=== PATIENT | female | born 1990 | race Caucasian/White ===

== ENCOUNTER 2018-11-27 22:17 | Emergency (ER) | payer BC ==
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
== END 2018-11-28 00:40 | disposition home or self-care (01) ==
LOC: MW.ED 22:17
DX: S80.12XA Contusion of left lower leg, initial encounter (principal); M79.631 Pain in right forearm; M54.6 Pain in thoracic spine; V89.2XXA Person injured in unspecified motor-vehicle accident, traffic, initial encounter
CPT/HCPCS: 72072; 72072-26; 72170; 72170-26; 73090-26-RT; 73090-RT; 73590-26-LT; 73590-LT; 81003; 81025; 99284-25

== ENCOUNTER 2020-03-05 10:57 | Inpatient (IN) | payer BC ==
[2020-03-05 13:07] LABS: BLOOD UREA NITROGEN,BUN 9 mg/dL (7.0-18.0); CARBON DIOXIDE,CO2 21.5 mmol/L (21.0-32.0); CHLORIDE,CL 104 mmol/L (98-107); GLUCOSE RANDOM 75 mg/dL (74-106); POTASSIUM,K 4.3 mmol/L (3.5-5.1); SODIUM,NA 137 mmol/L (136-145)
[2020-03-05] MEDS ORDERED: Terbutaline 1 MG/ML SDV SUBCUT PRN (15:08)
[2020-03-05] MEDS ORDERED: Nalbuphine 10 MG/1 ML Vial IVPUSH PRN (15:08)
[2020-03-05] MEDS ORDERED: Ondansetron 4 MG/2 ML SDV IVPUSH PRN (15:08)
[2020-03-05] MEDS ORDERED: Misoprostol 200 MCG Tab PO PRN (15:08)
[2020-03-05] MEDS ORDERED: Sodium Chloride 0.9% 10 ML Syringe FLUSH PRN (15:08)
[2020-03-05] MEDS ORDERED: Carboprost Tromethamine 250 MCG/1 ML Amp IM PRN (15:08)
[2020-03-05] MEDS ORDERED: Sodium Chloride 0.9% 2.5 ML Syringe FLUSH PRN (15:08)
[2020-03-05] MEDS ORDERED: Water For Irrigation,Sterile 1,000 ML Container IRR PRN (15:08)
[2020-03-05] MEDS ORDERED: Lidocaine 1% 50 ML MDV INJECT PRN (15:08)
[2020-03-05] MEDS ORDERED: Methylergonovine 0.2 MG/1 ML Amp IM PRN (15:08)
[2020-03-05] MEDS ORDERED: Misoprostol 25 MCG (1/4 of 100 MCG) Tab VAG PRN ×2 (15:08)
[2020-03-05] MEDS ORDERED: Butorphanol 1 MG/ML SDV IVPUSH PRN (15:08)
[2020-03-05] MEDS ORDERED: Tranexamic Acid 1,000 MG in Sodium Chloride 0.9% 100 ML IV PRN (15:08)
[2020-03-05] MEDS ORDERED: Lactated Ringers 1,000 ML IV SCH (15:15)
[2020-03-05] MEDS ORDERED: Oxytocin/0.9 % Sodium Chloride 30 UNIT/500 ML BAG IV SCH ×2 (15:15)
[2020-03-05] MEDS ORDERED: Benzocaine/Menthol 20%-0.5% Spray 78 GM Cannister TOP PRN (23:20)
[2020-03-05] MEDS ORDERED: Bisacodyl 10 MG Supp RECTAL PRN (23:20)
[2020-03-05] MEDS ORDERED: Ibuprofen 400 MG Tab PO PRN (23:20)
[2020-03-05] MEDS ORDERED: Docusate Sodium 100 MG Cap PO PRN (23:20)
[2020-03-05] MEDS ORDERED: Witch Hazel Medicated Pads 40/Jar TOP PRN (23:20)
[2020-03-05] MEDS ORDERED: Acetaminophen 500 MG Tab PO PRN ×2 (23:20)
[2020-03-05] MEDS ORDERED: oxyCODONE 5 MG Tab PO PRN (23:20)
[2020-03-05] MEDS ORDERED: Lanolin 100% Cream 7 GM Tube TOP PRN (23:20)
--- NOTE | 2020-03-05 23:26 | PCM.DEL ---
L & D Note - General Info Date of Service: 03/05/20 Mother's Due Date: 03/16/20 - Delivery Note Labor: Induced by Oxytocin Cervical Ripening Method: Misoprostil Delivery Outcome: Livebirth Infant Delivery Method: Spontaneous Vaginal Delivery-Single Presentation: Vertex Nuchal Cord: None Anesthetic: Lidocaine (Xylocaine) 1% Plain Local Anesthetic Volume: Other (10cc) Amniotic Fluid Description: Clear Episiotomy Type: None Laceration: 2nd Degree Suture type: Vicryl Suture size: 3-0 Placenta: Intact, Spontaneous Cord: 3 Vessels Estimated Blood Loss: 350 Resuscitation Needed: No [place]: Bulb Syringe Score 1 min: 8 Score 5 min: 9 - General Info Date of Service: 03/05/20 - Patient Data Weight - Most Recent: 198 lb Lab Results Last 24 Hours: Laboratory Results - last 24 hr 03/05/20 03/05/20 03/05/20 Range/Units 12:01 12:01 15:35 WBC 11.46 H (4.0-11.0) K/uL RBC 4.79 (4.30-5.90) M/uL Hgb 11.8 L (12.0-16.0) g/dL Hct 37.0 (36.0-46.0) % MCV 77.2 L (80.0-98.0) fL MCH 24.6 L (27.0-32.0) pg MCHC 31.9 (31.0-37.0) g/dL RDW Std Deviation 44.2 (28.0-62.0) fl RDW Coeff of Mahamed 16 H (11.0-15.0) % Plt Count 313 (150-400) K/uL MPV 10.30 (7.40-12.00) fL Neut % (Auto) 76.3 (48.0-80.0) % Lymph % (Auto) 17.7 (16.0-40.0) % [place] % (Auto) 5.1 (0.0-15.0) % Eos % (Auto) 0.8 (0.0-7.0) % Baso % (Auto) 0.1 (0.0-1.5) % Neut # (Auto) 8.8 H (1.4-5.7) K/uL Lymph # (Auto) 2.0 (0.6-2.4) K/uL [place] # (Auto) 0.6 (0.0-0.8) K/uL Eos # (Auto) 0.1 (0.0-0.7) K/uL Baso # (Auto) 0.0 (0.0-0.1) K/uL Nucleated RBC % 0.0 /100WBC Nucleated RBCs # 0 K/uL Sodium 137 (136-145) mmol/L Potassium 4.3 (3.5-5.1) mmol/L Chloride 104 (98-107) mmol/L Carbon Dioxide 21.5 (21.0-32.0) mmol/L BUN 9 (7.0-18.0) mg/dL Creatinine 0.7 (0.6-1.0) mg/dL Est Cr Clr Drug Dosing 94.63 mL/min Estimated GFR (MDRD) > 60.0 ml/min Glucose 75 (74-106) mg/dL Uric Acid 3.7 (2.6-7.2) mg/dL Calcium 8.7 (8.5-10.1) mg/dL Total Bilirubin 0.4 (0.2-1.0) mg/dL AST 17 (15-37) IU/L ALT 23 (14-63) IU/L Alkaline Phosphatase 703 H (46-116) U/L Total Protein 6.6 (6.4-8.2) g/dL Albumin 2.6 L (3.4-5.0) g/dL Globulin 4.0 (2.6-4.0) g/dL Albumin/Globulin Ratio 0.7 L (0.9-1.6) SARS-CoV-2 RNA (EMILY) (NEGATIVE) Blood Type A POSITIVE Antibody Screen NEGATIVE 03/05/20 Range/Units 15:46 WBC (4.0-11.0) K/uL RBC (4.30-5.90) M/uL Hgb (12.0-16.0) g/dL Hct (36.0-46.0) % MCV (80.0-98.0) fL MCH (27.0-32.0) pg MCHC (31.0-37.0) g/dL RDW Std Deviation (28.0-62.0) fl RDW Coeff of Mahamed (11.0-15.0) % Plt Count (150-400) K/uL MPV (7.40-12.00) fL Neut % (Auto) (48.0-80.0) % Lymph % (Auto) (16.0-40.0) % Wilcox % (Auto) (0.0-15.0) % Eos % (Auto) (0.0-7.0) % Baso % (Auto) (0.0-1.5) % Neut # (Auto) (1.4-5.7) K/uL Lymph # (Auto) (0.6-2.4) K/uL Wilcox # (Auto) (0.0-0.8) K/uL Eos # (Auto) (0.0-0.7) K/uL Baso # (Auto) (0.0-0.1) K/uL Nucleated RBC % /100WBC Nucleated RBCs # K/uL Sodium (136-145) mmol/L Potassium (3.5-5.1) mmol/L Chloride (98-107) mmol/L Carbon Dioxide (21.0-32.0) mmol/L BUN (7.0-18.0) mg/dL Creatinine (0.6-1.0) mg/dL Est Cr Clr Drug Dosing mL/min Estimated GFR (MDRD) ml/min Glucose (74-106) mg/dL Uric Acid (2.6-7.2) mg/dL Calcium (8.5-10.1) mg/dL Total Bilirubin (0.2-1.0) mg/dL AST (15-37) IU/L ALT (14-63) IU/L Alkaline Phosphatase (46-116) U/L Total Protein (6.4-8.2) g/dL Albumin (3.4-5.0) g/dL Globulin (2.6-4.0) g/dL Albumin/Globulin Ratio (0.9-1.6) SARS-CoV-2 RNA (EMILY) NEGATIVE (NEGATIVE) Blood Type Antibody Screen Med Orders - Current: Current Medications Butorphanol Tartrate (Stadol) 1 mg IVPUSH Q1H PRN PRN Reason: Pain Carboprost Tromethamine (Hemabate Ds) 250 mcg IM ASDIRECTED PRN PRN Reason: Post Hemorrhage Oxytocin/Sodium Chloride (Oxytocin 30 Unit/500 Ml-Ns) 30 unit in 500 mls @ 2 mls/hr IV TITRATE YURIDIA; Protocol Last Titration: 03/05/20 22:32 Dose: 0 munits/min, 0 mls/hr Documented by: Lactated Ringer's (Ringers, Lactated) 1,000 mls @ 150 mls/hr IV ASDIRECTED YURIDIA Oxytocin/Sodium Chloride (Oxytocin 30 Unit/500 Ml-Ns) 30 unit in 500 mls @ 500 mls/hr IV TITRATE YURIDIA Tranexamic Acid 1,000 mg/ (Sodium Chloride) 110 mls @ 660 mls/hr IV ONETIME PRN PRN Reason: Bleeding Lidocaine HCl (Xylocaine 1%) 50 ml INJECT ONETIME PRN PRN Reason: Laceration repair Methylergonovine Maleate (Methergine) 0.2 mg IM ASDIRECTED PRN PRN Reason: Post Hemorrhage Misoprostol (Cytotec) 25 mcg VAG ONETIME PRN PRN Reason: Cervical Ripening Last Admin: 03/05/20 16:44 Dose: 25 mcg Documented by: Misoprostol (Cytotec) 25 mcg VAG Q4H PRN PRN Reason: Cervical Ripening Misoprostol (Cytotec) 200 mcg PO ONETIME PRN PRN Reason: Post Hemorrhage Ondansetron HCl (Zofran) 4 mg IVPUSH Q4H PRN PRN Reason: Nausea/Vomiting Sodium Chloride (Saline Flush) 10 ml FLUSH ASDIRECTED PRN PRN Reason: Keep Vein Open Sodium Chloride (Saline Flush) 2.5 ml FLUSH ASDIRECTED PRN PRN Reason: Keep Vein Open Sterile Water (Sterile Water For Irrigation) 1,000 ml IRR ASDIRECTED PRN PRN Reason: delivery Terbutaline Sulfate (Brethine) 0.25 mg SUBCUT ASDIRECTED PRN PRN Reason: Tacysystole - Problem List Review Problem List Initiated/Reviewed/Updated: Yes - My Orders Last 24 Hours: My Active Orders 03/05/20 23:20 Patient Status [ADT] Routine May Shower [RC] ASDIRECTED Up ad Yadira [RC] ASDIRECTED Vital Signs [RC] PER UNIT ROUTINE Acetaminophen [Tylenol Extra Strength] 1,000 mg PO Q4H PRN Acetaminophen [Tylenol Extra Strength] 500 mg PO Q4H PRN Benzocaine/Menthol [Dermoplast Pain Relief 20%-0.5% [place]] 78 gm TOP DIRECTED PRN Docusate Sodium [Colace] 100 mg PO BID PRN Ibuprofen [Motrin] 400 mg PO Q4H PRN Ibuprofen [Motrin] 800 mg PO Q6H PRN Lanolin [Lansinoh HPA] See Dose Instructions TOP ASDIRECTED PRN bisacodyL [Dulcolax] 10 mg RECTAL ONETIME PRN oxyCODONE 5 mg PO Q2H PRN witch Tj [Tucks] 1 pad TOP ASDIRECTED PRN Assess Lochia [WOMSER] Per Unit Routine Assess Uterine Involution [WOMSER] Per Unit Routine Peripheral IV Discontinue [OM.PC] Routine 03/06/20 05:11 HEMOGLOBIN/HEMATOCRIT,HH [HEME] Timed - Assessment Assessment:: 30yo G3 now P3 s/p IOL for gestation hypertension - Plan Plan:: Routine cares * A+, GBS negative * Rubella NON-immune - Recommend MMR * Admission Hgb 11.8, EBL 350cc - Will monitor bleeding * Encourage ambulation and fluid intake when able * assistance as needed Gestational hypertension * BPs normotensive to mild range - Will continue to monitor * Asymptomatic * Preeclampsia labs within normal limits Dispo: stable. Anticipate routine course.
--- NOTE | 2020-03-06 00:42 | OR ---
SURGEON: MADYSON MAURO MD DATE OF PROCEDURE: 03/05/2020 PROCEDURE: Spontaneous vaginal delivery. PREOPERATIVE DIAGNOSES: 1. A 38.3 weeks' . 2. Gestational hypertension. POSTOPERATIVE DIAGNOSES: 1. A 38.3 weeks' . 2. Gestational hypertension. PRIMARY SURGEON: Madyson Mauro MD INTERMEDIATE MANAGER: COMPLICATIONS: None. ESTIMATED BLOOD LOSS: 350 mL. FINDINGS: Viable female . scores 8 at one minute and 9 at five minutes. Weight not yet available. Spontaneous vaginal delivery. Placenta delivered intact with 3-vessel cord. Second-degree perineal laceration. DESCRIPTION OF PROCEDURE: Nadeen is a 30-year-old 3, para 2, who was diagnosed with gestational hypertension at 38.3 weeks' gestation at her routine OB visit on 03/05. She was sent over to Labor and Delivery after her visit and had preeclampsia workup, which was negative. Blood pressures remained normotensive to mild range and she remained asymptomatic. Her cervical exam was 1 to 2 cm, 50, and -3. Upon admission to Labor and Delivery, she received a dose of vaginal Cytotec. Labor progressed spontaneously along with spontaneous rupture of membranes at approximately 2230. I was called at 2250 for delivery, and upon arrival to the room, the patient had just delivery of viable female . scores were 8 and 9 at one and five minutes respectively. After a delay, the cord was clamped and cut, and arterial and venous cord gases were obtained along with cord blood sampling. Placenta was then delivered spontaneously and intact. Appeared normal upon inspection, and was sent for pathology due to gestational hypertension diagnosis. A second-degree perineal laceration was noted. The area was numbed with local anesthetic, lidocaine 1%, without epinephrine. The second-degree laceration was repaired with 3-0 Vicryl in usual fashion. Uterus remained firm and below the umbilicus throughout the procedure. Hemostasis was noted. EBL was 350 mL. Sponge counts and needle counts were correct x2. The patient tolerated the procedure well and the patient and infant remained in Labor and Delivery room for recovery at this time. KARO / MARIANNA /[id number]
[2020-03-06] MEDS: Ibuprofen 800 MG Tab PO PRN ×2 (01:05→16:41)
--- NOTE | 2020-03-06 09:14 | PCM.PNPP ---
- General Info Date of Service: 03/06/20 Subjective Update: 30yo s/p PPD 1 , she denies headache , RUQ pain and BV she is tolerating regular diet Normal lochia Functional Status: Reports: Pain Controlled, Tolerating Diet, Ambulating, Urinating - Review of Systems General: Reports: No Symptoms HEENT: Reports: No Symptoms Pulmonary: Reports: No Symptoms Cardiovascular: Reports: No Symptoms Gastrointestinal: Reports: No Symptoms Genitourinary: Reports: No Symptoms Musculoskeletal: Reports: No Symptoms Skin: Reports: No Symptoms Neurological: Reports: No Symptoms Psychiatric: Reports: No Symptoms - Patient Data Vital Signs - Most Recent: Last Vital Signs Temp 36.3 C 03/06/20 07:53 Pulse 92 03/06/20 07:53 Resp 17 03/06/20 07:53 BP 117/74 03/06/20 07:53 Pulse Ox 98 03/06/20 07:53 Weight - Most Recent: 89.811 kg Lab Results - Last 24 Hours: Laboratory Results - last 24 hr 03/05/20 03/05/20 03/05/20 Range/Units 12:01 12:01 15:35 WBC 11.46 H (4.0-11.0) K/uL RBC 4.79 (4.30-5.90) M/uL Hgb 11.8 L (12.0-16.0) g/dL Hct 37.0 (36.0-46.0) % MCV 77.2 L (80.0-98.0) fL MCH 24.6 L (27.0-32.0) pg MCHC 31.9 (31.0-37.0) g/dL RDW Std Deviation 44.2 (28.0-62.0) fl RDW Coeff of Mahamed 16 H (11.0-15.0) % Plt Count 313 (150-400) K/uL MPV 10.30 (7.40-12.00) fL Neut % (Auto) 76.3 (48.0-80.0) % Lymph % (Auto) 17.7 (16.0-40.0) % Gaines % (Auto) 5.1 (0.0-15.0) % Eos % (Auto) 0.8 (0.0-7.0) % Baso % (Auto) 0.1 (0.0-1.5) % Neut # (Auto) 8.8 H (1.4-5.7) K/uL Lymph # (Auto) 2.0 (0.6-2.4) K/uL Gaines # (Auto) 0.6 (0.0-0.8) K/uL Eos # (Auto) 0.1 (0.0-0.7) K/uL Baso # (Auto) 0.0 (0.0-0.1) K/uL Nucleated RBC % 0.0 /100WBC Nucleated RBCs # 0 K/uL Sodium 137 (136-145) mmol/L Potassium 4.3 (3.5-5.1) mmol/L Chloride 104 (98-107) mmol/L Carbon Dioxide 21.5 (21.0-32.0) mmol/L BUN 9 (7.0-18.0) mg/dL Creatinine 0.7 (0.6-1.0) mg/dL Est Cr Clr Drug Dosing 94.63 mL/min Estimated GFR (MDRD) > 60.0 ml/min Glucose 75 (74-106) mg/dL Uric Acid 3.7 (2.6-7.2) mg/dL Calcium 8.7 (8.5-10.1) mg/dL Total Bilirubin 0.4 (0.2-1.0) mg/dL AST 17 (15-37) IU/L ALT 23 (14-63) IU/L Alkaline Phosphatase 703 H (46-116) U/L Total Protein 6.6 (6.4-8.2) g/dL Albumin 2.6 L (3.4-5.0) g/dL Globulin 4.0 (2.6-4.0) g/dL Albumin/Globulin Ratio 0.7 L (0.9-1.6) SARS-CoV-2 RNA (EMILY) (NEGATIVE) Blood Type A POSITIVE Antibody Screen NEGATIVE 03/05/20 03/06/20 Range/Units 15:46 05:17 WBC (4.0-11.0) K/uL RBC (4.30-5.90) M/uL Hgb 10.9 L (12.0-16.0) g/dL Hct 34.8 L (36.0-46.0) % MCV (80.0-98.0) fL MCH (27.0-32.0) pg MCHC (31.0-37.0) g/dL RDW Std Deviation (28.0-62.0) fl RDW Coeff of Mahamed (11.0-15.0) % Plt Count (150-400) K/uL MPV (7.40-12.00) fL Neut % (Auto) (48.0-80.0) % Lymph % (Auto) (16.0-40.0) % Gaines % (Auto) (0.0-15.0) % Eos % (Auto) (0.0-7.0) % Baso % (Auto) (0.0-1.5) % Neut # (Auto) (1.4-5.7) K/uL Lymph # (Auto) (0.6-2.4) K/uL Gaines # (Auto) (0.0-0.8) K/uL Eos # (Auto) (0.0-0.7) K/uL Baso # (Auto) (0.0-0.1) K/uL Nucleated RBC % /100WBC Nucleated RBCs # K/uL Sodium (136-145) mmol/L Potassium (3.5-5.1) mmol/L Chloride (98-107) mmol/L Carbon Dioxide (21.0-32.0) mmol/L BUN (7.0-18.0) mg/dL Creatinine (0.6-1.0) mg/dL Est Cr Clr Drug Dosing mL/min Estimated GFR (MDRD) ml/min Glucose (74-106) mg/dL Uric Acid (2.6-7.2) mg/dL Calcium (8.5-10.1) mg/dL Total Bilirubin (0.2-1.0) mg/dL AST (15-37) IU/L ALT (14-63) IU/L Alkaline Phosphatase (46-116) U/L Total Protein (6.4-8.2) g/dL Albumin (3.4-5.0) g/dL Globulin (2.6-4.0) g/dL Albumin/Globulin Ratio (0.9-1.6) SARS-CoV-2 RNA (EMILY) NEGATIVE (NEGATIVE) Blood Type Antibody Screen Med Orders - Current: Current Medications Acetaminophen (Tylenol Extra Strength) 500 mg PO Q4H PRN PRN Reason: Pain Acetaminophen (Tylenol Extra Strength) 1,000 mg PO Q4H PRN PRN Reason: Pain Benzocaine/Menthol (Dermoplast Pain Relief 20%-0.5% [place]) 78 gm TOP ASDIRECTED PRN PRN Reason: Perineal Comfort Measure Last Admin: 03/06/20 01:04 Dose: 1 can Documented by: Bisacodyl (Dulcolax) 10 mg RECTAL ONETIME PRN PRN Reason: Constipation Butorphanol Tartrate (Stadol) 1 mg IVPUSH Q1H PRN PRN Reason: Pain Carboprost Tromethamine (Hemabate Ds) 250 mcg IM ASDIRECTED PRN PRN Reason: Post Hemorrhage Docusate Sodium (Colace) 100 mg PO BID PRN PRN Reason: Constipation Last Admin: 03/06/20 01:05 Dose: 100 mg Documented by: Emollient Ointment (Lansinoh Hpa) 0 gm TOP ASDIRECTED PRN PRN Reason: Sore Nipples Last Admin: 03/06/20 01:05 Dose: 7 gram Documented by: Oxytocin/Sodium Chloride (Oxytocin 30 Unit/500 Ml-Ns) 30 unit in 500 mls @ 2 mls/hr IV TITRATE YURIDIA; Protocol Last Titration: 03/05/20 22:32 Dose: 0 munits/min, 0 mls/hr Documented by: Lactated Ringer's (Ringers, Lactated) 1,000 mls @ 150 mls/hr IV ASDIRECTED YURIDIA Oxytocin/Sodium Chloride (Oxytocin 30 Unit/500 Ml-Ns) 30 unit in 500 mls @ 500 mls/hr IV TITRATE YURIDIA Tranexamic Acid 1,000 mg/ (Sodium Chloride) 110 mls @ 660 mls/hr IV ONETIME PRN PRN Reason: Bleeding Ibuprofen (Motrin) 400 mg PO Q4H PRN PRN Reason: Pain Ibuprofen (Motrin) 800 mg PO Q6H PRN PRN Reason: Pain Last Admin: 03/06/20 01:05 Dose: 800 mg Documented by: Lidocaine HCl (Xylocaine 1%) 50 ml INJECT ONETIME PRN PRN Reason: Laceration repair Methylergonovine Maleate (Methergine) 0.2 mg IM ASDIRECTED PRN PRN Reason: Post Hemorrhage Misoprostol (Cytotec) 25 mcg VAG ONETIME PRN PRN Reason: Cervical Ripening Last Admin: 03/05/20 16:44 Dose: 25 mcg Documented by: Misoprostol (Cytotec) 25 mcg VAG Q4H PRN PRN Reason: Cervical Ripening Misoprostol (Cytotec) 200 mcg PO ONETIME PRN PRN Reason: Post Hemorrhage Ondansetron HCl (Zofran) 4 mg IVPUSH Q4H PRN PRN Reason: Nausea/Vomiting Oxycodone HCl (Oxycodone) 5 mg PO Q2H PRN PRN Reason: Pain Sodium Chloride (Saline Flush) 10 ml FLUSH ASDIRECTED PRN PRN Reason: Keep Vein Open Sodium Chloride (Saline Flush) 2.5 ml FLUSH ASDIRECTED PRN PRN Reason: Keep Vein Open Sterile Water (Sterile Water For Irrigation) 1,000 ml IRR ASDIRECTED PRN PRN Reason: delivery Terbutaline Sulfate (Brethine) 0.25 mg SUBCUT ASDIRECTED PRN PRN Reason: Tacysystole Witch Carole (Tucks) 1 pad TOP ASDIRECTED PRN PRN Reason: comfort care Last Admin: 03/06/20 01:04 Dose: 1 tub Documented by: - Infant Interaction Support Person: - Recovery Exam Fundal Tone: Firm Fundal Level: 1 Fingerbreadths Below Umbilicus Fundal Placement: Midline Lochia Amount: Scant Lochia Color: Rubra/Red Perineum Description: Other (see below) Other Perinuem Description: 1st degree laceration Episiotomy/Laceration: Approximated Bladder Status: Voiding Urinary Elimination: Voided - Exam General: Alert HEENT: Pupils Equal Neck: Supple Lungs: Clear to Auscultation, Rhonchi Cardiovascular: Regular Rate GI/Abdominal Exam: Normal Bowel Sounds Neurological: No New Focal Deficit Psy/Mental Status: Alert - Problem List & Annotations (1) Vaginal delivery SNOMED Code(s): 461116473 Code(s): O80 - ENCOUNTER FOR FULL-TERM UNCOMPLICATED DELIVERY Status: Acute Current Visit: Yes (2) Gestational hypertension SNOMED Code(s): 513140106 Code(s): O13.9 - GESTATIONAL HTN W/O SIGNIFICANT PROTEINURIA, UNSP TRIMESTER Status: Acute Current Visit: Yes - Problem List Review Problem List Initiated/Reviewed/Updated: Yes - My Orders Last 24 Hours: My Active Orders 03/05/20 Lunch Regular Diet [DIET] 03/05/20 11:37 Patient Status [ADT] Routine Up ad Yadira [RC] ASDIRECTED Vital Signs [RC] PER UNIT ROUTINE Resuscitation Status Routine 03/05/20 15:08 Butorphanol [Stadol] 1 mg IVPUSH Q1H PRN Carboprost Tromethamine [Hemabate DS] 250 mcg IM ASDIRECTED PRN Lidocaine 1% [Xylocaine 1%] 50 ml INJECT ONETIME PRN Methylergonovine [Methergine] 0.2 mg IM ASDIRECTED PRN Ondansetron [Zofran] 4 mg IVPUSH Q4H PRN Sodium Chloride 0.9% [Saline Flush] 10 ml FLUSH ASDIRECTED PRN Sodium Chloride 0.9% [Saline Flush] 2.5 ml FLUSH ASDIRECTED PRN Terbutaline [Brethine] 0.25 mg SUBCUT ASDIRECTED PRN Tranexamic Acid [Cyklokapron] 1,000 mg Sodium Chloride 0.9% [Normal Saline] 100 ml IV ONETIME Water For Irrigation,Sterile [Sterile Water for Irrigation] 1,000 ml IRR ASD IRECTED PRN miSOPROStoL [Cytotec] 200 mcg PO ONETIME PRN miSOPROStoL [Cytotec] 25 mcg VAG ONETIME PRN miSOPROStoL [Cytotec] 25 mcg VAG Q4H PRN 03/05/20 15:09 Patient Status [ADT] Routine May Shower [RC] ASDIRECTED Oxygen Therapy [RC] ASDIRECTED Vital Signs [RC] PER UNIT ROUTINE Vital Signs [RC] PER UNIT ROUTINE Scalp Electrode [WOMSER] Per Unit Routine Peripheral IV Insertion Adult [OM.PC] Routine 03/05/20 15:15 Lactated Ringers [Ringers, Lactated] 1,000 ml IV ASDIRECTED Oxytocin/0.9 % Sodium Chloride [Oxytocin 30 Unit/500 ML-NS] 30 unit in 500 ml IV TITRATE Oxytocin/0.9 % Sodium Chloride [Oxytocin 30 Unit/500 ML-NS] 30 unit in 500 ml IV TITRATE Medication Administration Instruction [OM.PC] Q3H 03/05/20 15:35 RPR (SYPHILIS SERO) W/ RFLX [REF] Routine 03/05/20 20:00 PROTEIN/CREATININE RATIO,URINE [URCHEM] Routine - Assessment Assessment:: 30yo P3 s/p ( induced for gestation hypertension) PPD 1 stable , BP stable , PCR still pending Normal lochia - Plan Plan:: Routine care Rubella non- immune - MMR today Pain control as needed Discharge home today.
[2020-03-06] MEDS ORDERED: Measles, Mumps & Rubella Vaccine 0.5 ML SDV SUBCUT ONE (09:15)
[2020-03-07] MEDS: Ibuprofen 800 MG Tab PO PRN (03:37)
--- NOTE | 2020-03-07 08:44 | PCM.PNPP ---
- General Info Date of Service: 03/07/20 Subjective Update: 30yo s/p PPD 2 , she denies headache , RUQ pain and BV she is tolerating regular diet Normal lochia Functional Status: Reports: Pain Controlled, Tolerating Diet, Ambulating, Urinating - Review of Systems General: Reports: No Symptoms HEENT: Reports: No Symptoms Pulmonary: Reports: No Symptoms Cardiovascular: Reports: No Symptoms Gastrointestinal: Reports: No Symptoms Genitourinary: Reports: No Symptoms Musculoskeletal: Reports: No Symptoms Skin: Reports: No Symptoms Neurological: Reports: No Symptoms Psychiatric: Reports: No Symptoms - General Info Date of Service: 03/07/20 - Patient Data Vital Signs - Most Recent: Last Vital Signs Temp 36.2 C 03/07/20 08:28 Pulse 70 03/07/20 08:28 Resp 14 03/07/20 08:28 BP 115/73 03/07/20 08:28 Pulse Ox 98 03/07/20 08:28 Weight - Most Recent: 89.811 kg Lab Results - Last 24 Hours: Laboratory Results - last 24 hr 03/05/20 03/06/20 Range/Units 22:46 09:45 Cord ABG pH 7.237 (7.18-7.38) Cord ABG Base Excess -7 (-10--2) Cord VBG pH 7.274 (7.25-7.45) Cord VBG Base Excess -6 (-10--2) Ur Random Creatinine 45.8 mg/dL U Random Total Protein 64.7 H (<11.9) mg/dL Protein/Creatinin Ratio 1.4 Med Orders - Current: Current Medications Acetaminophen (Tylenol Extra Strength) 500 mg PO Q4H PRN PRN Reason: Pain Acetaminophen (Tylenol Extra Strength) 1,000 mg PO Q4H PRN PRN Reason: Pain Benzocaine/Menthol (Dermoplast Pain Relief 20%-0.5% [place]) 78 gm TOP ASDIRECTED PRN PRN Reason: Perineal Comfort Measure Last Admin: 03/06/20 01:04 Dose: 1 can Documented by: Bisacodyl (Dulcolax) 10 mg RECTAL ONETIME PRN PRN Reason: Constipation Butorphanol Tartrate (Stadol) 1 mg IVPUSH Q1H PRN PRN Reason: Pain Carboprost Tromethamine (Hemabate Ds) 250 mcg IM ASDIRECTED PRN PRN Reason: Post Hemorrhage Docusate Sodium (Colace) 100 mg PO BID PRN PRN Reason: Constipation Last Admin: 03/06/20 01:05 Dose: 100 mg Documented by: Emollient Ointment (Lansinoh Hpa) 0 gm TOP ASDIRECTED PRN PRN Reason: Sore Nipples Last Admin: 03/06/20 01:05 Dose: 7 gram Documented by: Oxytocin/Sodium Chloride (Oxytocin 30 Unit/500 Ml-Ns) 30 unit in 500 mls @ 2 mls/hr IV TITRATE YURIDIA; Protocol Last Titration: 03/05/20 22:32 Dose: 0 munits/min, 0 mls/hr Documented by: Lactated Ringer's (Ringers, Lactated) 1,000 mls @ 150 mls/hr IV ASDIRECTED YURIDIA Oxytocin/Sodium Chloride (Oxytocin 30 Unit/500 Ml-Ns) 30 unit in 500 mls @ 500 mls/hr IV TITRATE YURIDIA Tranexamic Acid 1,000 mg/ (Sodium Chloride) 110 mls @ 660 mls/hr IV ONETIME PRN PRN Reason: Bleeding Ibuprofen (Motrin) 400 mg PO Q4H PRN PRN Reason: Pain Ibuprofen (Motrin) 800 mg PO Q6H PRN PRN Reason: Pain Last Admin: 03/07/20 03:37 Dose: 800 mg Documented by: Lidocaine HCl (Xylocaine 1%) 50 ml INJECT ONETIME PRN PRN Reason: Laceration repair Methylergonovine Maleate (Methergine) 0.2 mg IM ASDIRECTED PRN PRN Reason: Post Hemorrhage Misoprostol (Cytotec) 25 mcg VAG ONETIME PRN PRN Reason: Cervical Ripening Last Admin: 03/05/20 16:44 Dose: 25 mcg Documented by: Misoprostol (Cytotec) 25 mcg VAG Q4H PRN PRN Reason: Cervical Ripening Misoprostol (Cytotec) 200 mcg PO ONETIME PRN PRN Reason: Post Hemorrhage Ondansetron HCl (Zofran) 4 mg IVPUSH Q4H PRN PRN Reason: Nausea/Vomiting Oxycodone HCl (Oxycodone) 5 mg PO Q2H PRN PRN Reason: Pain Sodium Chloride (Saline Flush) 10 ml FLUSH ASDIRECTED PRN PRN Reason: Keep Vein Open Sodium Chloride (Saline Flush) 2.5 ml FLUSH ASDIRECTED PRN PRN Reason: Keep Vein Open Sterile Water (Sterile Water For Irrigation) 1,000 ml IRR ASDIRECTED PRN PRN Reason: delivery Terbutaline Sulfate (Brethine) 0.25 mg SUBCUT ASDIRECTED PRN PRN Reason: Tacysystole Witch Carole (Tucks) 1 pad TOP ASDIRECTED PRN PRN Reason: comfort care Last Admin: 03/06/20 01:04 Dose: 1 tub Documented by: Discontinued Medications Measles/Mumps/Rubella Vaccine Live (M-M-R Ii Vaccine) 0.5 ml SUBCUT .ONCE ONE Stop: 03/06/20 09:16 - Interaction Support Person: - Recovery Exam Fundal Tone: Firm Fundal Level: At Umbilicus Fundal Placement: Midline Lochia Amount: Small Lochia Color: Rubra/Red Perineum Description: Intact, Minimal Bruising/Swelling Other Perinuem Description: 1st degree laceration Episiotomy/Laceration: Approximated Bladder Status: Voiding Urinary Elimination: Voided - Exam General: Alert HEENT: Pupils Equal Neck: Supple Lungs: Clear to Auscultation Cardiovascular: Regular Rate, Regular Rhythm GI/Abdominal Exam: Normal Bowel Sounds Extremities: Normal Inspection Neurological: No New Focal Deficit Psy/Mental Status: Alert - Problem List & Annotations (1) Vaginal delivery SNOMED Code(s): 975734000 Code(s): O80 - ENCOUNTER FOR FULL-TERM UNCOMPLICATED DELIVERY Status: Acute Current Visit: Yes (2) Gestational hypertension SNOMED Code(s): 133140051 Code(s): O13.9 - GESTATIONAL HTN W/O SIGNIFICANT PROTEINURIA, UNSP TRIMESTER Status: Acute Current Visit: Yes - Problem List Review Problem List Initiated/Reviewed/Updated: Yes - My Orders Last 24 Hours: My Active Orders 03/06/20 09:15 Vaccines to be Administered [RC] PER UNIT ROUTINE - Assessment Assessment:: 30yo P3 s/p ( induced for gestation hypertension) PPD 2 stable , BP stable , PCR still pending Normal lochia - Plan Plan:: Routine care Rubella non- immune - MMR today Pain control as needed Discharge home today.
== END 2020-03-07 14:40 | disposition home or self-care (01) | DRG 560 ==
LOC: MW.OB 10:57 → MW.OBCHECK 10:57 → MW.OB 15:09 → OBSVTOIN 23:20 → MW.OB 03-06 11:30
PROVIDERS: ADMIT Obstetrics & Gynecology; ATTEND Obstetrics & Gynecology
PROC: 10E0XZZ Delivery of Products of Conception, External Approach (ICD-10-PCS; principal; 2020-03-05)
PROC: 3E033VJ Introduction of Other Hormone into Peripheral Vein, Percutaneous Approach (ICD-10-PCS; 2020-03-05)
PROC: 3E0P7VZ Introduction of Hormone into Female Reproductive, Via Natural or Artificial Opening (ICD-10-PCS; 2020-03-05)
PROC: 0KQM0ZZ Repair Perineum Muscle, Open Approach (ICD-10-PCS; 2020-03-05)
DX: O13.4 Gestational [pregnancy-induced] hypertension without significant proteinuria, complicating childbirth (principal); Z37.0 Single live birth; O70.1 Second degree perineal laceration during delivery; Z20.828 Contact with and (suspected) exposure to other viral communicable diseases; Z3A.38 38 weeks gestation of pregnancy
CPT/HCPCS: 36415; 59025; 59409; 80053; 82570; 82803; 84156; 84550; 85014; 85018; 85025; 86592; 86850; 86900; 86901; 88307; 90707; A9270-GY; J2590; U0002

== ENCOUNTER 2020-11-29 12:17 | Emergency (ER) | payer BC ==
[2020-11-29 13:14] LABS: BLOOD UREA NITROGEN,BUN 10 mg/dL (7.0-18.0); CARBON DIOXIDE,CO2 24.2 mmol/L (21.0-32.0); CHLORIDE,CL 105 mmol/L (98-107); GLUCOSE RANDOM 99 mg/dL (74-106); POTASSIUM,K 3.5 mmol/L (3.5-5.1); SODIUM,NA 140 mmol/L (136-145)
--- NOTE | 2020-11-29 13:14 | EDM.PDOC ---
ED HPI GENERAL MEDICAL PROBLEM - General Chief Complaint: General Stated Complaint: CHEST PAIN Time Seen by Provider: 11/29/20 12:45 Source of Information: Reports: Patient History Limitations: Reports: No Limitations - History of Present Illness INITIAL COMMENTS - FREE TEXT/NARRATIVE: HISTORY AND PHYSICAL: History of present illness: The patient is a 22-year-old female who presents to the emergency room with complaints of sharp pain that originates underneath her breast wraps around to her mid back which started at around 5:00 this morning. The patient states the pain is intermittent and describes it as achy. At present she is pain-free. The patient denies shortness of breath and states that she is a little anxious because she found out she was last night. Apparently she had a live 8 months ago. She required blood pressure meds for 1 month due to hypertension. She is not presently on those medications. She did have 1 bout of diarrhea yesterday and was dizzy on Monday. Review of systems: As per history of present illness and below otherwise all systems reviewed and negative. Past medical history: As per history of present illness and as reviewed below otherwise noncontributory. Surgical history: As per history of present illness and as reviewed below otherwise noncontributory. Social history: See social history for further information Family history: As per history of present illness and as reviewed below otherwise noncontributory. Physical exam: General: Well developed and well nourished. Alert and orientated x 3. Nontoxic in appearance and in no acute distress. Vital signs are stable and have been reviewed by me. Nursing notes were reviewed. HEENT: Atraumatic, normocephalic, pupils equal and reactive bilaterally, negative for conjunctival pallor or scleral icterus, mucous membranes moist, TMs normal bilaterally, throat clear, neck supple, nontender, trachea midline. No drooling or trismus noted. No meningeal signs. No hot potato voice noted. Lungs: Clear to auscultation bilaterally. No wheezes, rales, or rhonchi. Chest nontender. Normal work of breathing, no accessory muscles used. Heart: S1S2, regular rate and rhythm without overt murmur, gallops, or rubs. No JVD. No peripheral edema Abdomen: Soft, nondistended, nontender. Normoactive bowel sounds. Negative for masses or costovertebral tenderness. Skin: Intact, warm, dry. No lesions or rashes noted. Hematologic: No petechiae or purpra. Mucosa appropriate color and normal nail bed color and refill. Extremities: Atraumatic, moves all extremities per self without difficulty or deficits, negative for cords or calf pain. Neurovascular unremarkable. Neuro: Awake, alert, oriented. Cranial nerves II through XII unremarkable. Cerebellum unremarkable. Motor and sensory unremarkable throughout. Exam nonfocal. Psychiatric: Mood and affect are appropriate. Normal thought process. Answering questions appropriately. Notes: *This patient was seen and evaluated during the 2019 SARS-CoV-2 novel coronavirus pandemic period. Community viral transmission is ongoing at time of this encounter and the emergency department is operating under pandemic response procedures. As stated above the patient has intermittent left pain that radiates from the breast around to the mid back. She had a live 8 months ago for which she was treated for hypertension for about [address] oMjica consulted on the case. At present I will do a cardiac workup and OB work-up. Patient's well score is 0 and she is low risk for blood clot so no work-up is warranted at this time. I will give strict instructions on follow-up care. Bedside ultrasound was inconsistent and I will order a OB ultrasound. Ultrasound pelvis IMPRESSION: 1. Complex left ovarian cyst measuring 1.3 x 0.9 x 1.2 centimeters likely reflect corpus luteum cysts. Normal blood flow to both ovaries. Normal right ovary. The patient CBC is unremarkable. The patient's CMP and urine are unremarkable. The patient's quantitative hCG was 164. I will discharge the patient with instructions to follow-up with her [employer] for a follow-up ultrasound and quantitative hCG. The patient is agreeable to this plan. The patient states that her left sided chest pain has went away and has been gone for several hours. I have talked with the patient about today's findings, in addition to providing specific details for plan of care. Reassessment at the time of disposition demonstrates that the patient is in no acute distress. The patient is stable for discharge, counseling was provided and we discussed in great detail signs and symptoms that would prompt them to return to the Emergency Department. Medication, follow up and supportive care measures were reviewed and discussed. Voices understanding and is agreeable to plan of care. Denies any further questions or concerns at this time. Diagnostics: CBC, CMP, troponin, EKG, annotated hCG, urine hCG Impression: Chest wall pain, Plan: 1. You were evaluated today on an emergent basis. Your complaints of pain from your under your left breast to your left mid back was evaluated with blood work, EKG, and and ultrasound. They were all normal. Your ultrasound reading is 2. You can alternate Tylenol and ibuprofen as needed for pain and fever management. Complex left ovarian cyst measuring 1.3 x 0.9 x 1.2 centimeters likely reflect corpus luteum cysts. Normal blood flow to both ovaries. Normal right ovary. Your quantitative hCG was 164. You need to follow-up with your [employer] and have a follow-up ultrasound and quantitative hCG. If your pain does return please return to the emergency room. 3. We encourage you to follow up with your primary care provider and/or recommended specialist in the next few days for re-evaluation and further care/management. 4. If your symptoms should worsen, new symptoms develop or any of the signs and symptoms we discussed should arise please return to the emergency room or call 911 (if needed). Definitive disposition and diagnosis as appropriate pending reevaluation and review of above. Left Chest Wall Pain Score (Numeric/FACES): 7 - Related Data Allergies Allergy/AdvReac Type Severity Reaction Status Date / Time No Known Allergies Allergy Verified 11/29/20 12:35 Home Meds: Home Meds . 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 ED EXAM, GENERAL - Physical Exam Exam: See Below (See dictation) Course - Vital Signs Last Recorded V/S: Last Vital Signs Temp 97.6 F 06/20/21 12:35 Pulse 91 11/29/20 16:53 Resp 16 11/29/20 16:53 BP 126/75 11/29/20 16:53 Pulse Ox 100 11/29/20 16:53 - Orders/Labs/Meds Labs: Laboratory Tests 11/29/20 11/29/20 11/29/20 Range/Units 12:41 12:41 12:41 WBC 9.28 (4.0-11.0) K/uL RBC 5.41 (4.30-5.90) M/uL Hgb 14.0 (12.0-16.0) g/dL Hct 42.4 (36.0-46.0) % MCV 78.4 L (80.0-98.0) fL MCH 25.9 L (27.0-32.0) pg MCHC 33.0 (31.0-37.0) g/dL RDW Std Deviation 41.4 (28.0-62.0) fl RDW Coeff of Mahamed 15 (11.0-15.0) % Plt Count 339 (150-400) K/uL MPV 9.90 (7.40-12.00) fL Neut % (Auto) 60.0 (48.0-80.0) % Lymph % (Auto) 30.6 (16.0-40.0) % [place] % (Auto) 6.5 (0.0-15.0) % Eos % (Auto) 2.8 (0.0-7.0) % Baso % (Auto) 0.1 (0.0-1.5) % Neut # (Auto) 5.6 (1.4-5.7) K/uL Lymph # (Auto) 2.8 H (0.6-2.4) K/uL [place] # (Auto) 0.6 (0.0-0.8) K/uL Eos # (Auto) 0.3 (0.0-0.7) K/uL Baso # (Auto) 0.0 (0.0-0.1) K/uL Nucleated RBC % 0.0 /100WBC Nucleated RBCs # 0 K/uL Sodium 140 (136-145) mmol/L Potassium 3.5 (3.5-5.1) mmol/L Chloride 105 (98-107) mmol/L Carbon Dioxide 24.2 (21.0-32.0) mmol/L BUN 10 (7.0-18.0) mg/dL Creatinine 0.8 (0.6-1.0) mg/dL Est Cr Clr Drug Dosing 98.01 mL/min Estimated GFR (MDRD) > 60.0 ml/min Glucose 99 (74-106) mg/dL Calcium 8.7 (8.5-10.1) mg/dL Total Bilirubin 1.2 H (0.2-1.0) mg/dL AST 16 (15-37) IU/L ALT 18 (14-63) IU/L Alkaline Phosphatase 104 (46-116) U/L Total Protein 7.5 (6.4-8.2) g/dL Albumin 3.6 (3.4-5.0) g/dL Globulin 3.9 (2.6-4.0) g/dL Albumin/Globulin Ratio 0.9 (0.9-1.6) HCG, Quant 164.0 mIU/mL Urine Color Urine Appearance Urine pH (5.0-8.0) Ur Specific [place] (1.001-1.035) Urine Protein (NEGATIVE) mg/dL Urine Glucose (UA) (NEGATIVE) mg/dL Urine Ketones (NEGATIVE) mg/dL Urine Occult Blood (NEGATIVE) Urine Nitrite (NEGATIVE) Urine Bilirubin (NEGATIVE) Urine Urobilinogen (<2.0) EU/dL Ur Leukocyte Esterase (NEGATIVE) Urine HCG, Qual (NEGATIVE) 11/29/20 11/29/20 Range/Units 14:06 14:06 WBC (4.0-11.0) K/uL RBC (4.30-5.90) M/uL Hgb (12.0-16.0) g/dL Hct (36.0-46.0) % MCV (80.0-98.0) fL MCH (27.0-32.0) pg MCHC (31.0-37.0) g/dL RDW Std Deviation (28.0-62.0) fl RDW Coeff of Mahamed (11.0-15.0) % Plt Count (150-400) K/uL MPV (7.40-12.00) fL Neut % (Auto) (48.0-80.0) % Lymph % (Auto) (16.0-40.0) % [place] % (Auto) (0.0-15.0) % Eos % (Auto) (0.0-7.0) % Baso % (Auto) (0.0-1.5) % Neut # (Auto) (1.4-5.7) K/uL Lymph # (Auto) (0.6-2.4) K/uL [place] # (Auto) (0.0-0.8) K/uL Eos # (Auto) (0.0-0.7) K/uL Baso # (Auto) (0.0-0.1) K/uL Nucleated RBC % /100WBC Nucleated RBCs # K/uL Sodium (136-145) mmol/L Potassium (3.5-5.1) mmol/L Chloride (98-107) mmol/L Carbon Dioxide (21.0-32.0) mmol/L BUN (7.0-18.0) mg/dL Creatinine (0.6-1.0) mg/dL Est Cr Clr Drug Dosing mL/min Estimated GFR (MDRD) ml/min Glucose (74-106) mg/dL Calcium (8.5-10.1) mg/dL Total Bilirubin (0.2-1.0) mg/dL AST (15-37) IU/L ALT (14-63) IU/L Alkaline Phosphatase (46-116) U/L Total Protein (6.4-8.2) g/dL Albumin (3.4-5.0) g/dL Globulin (2.6-4.0) g/dL Albumin/Globulin Ratio (0.9-1.6) HCG, Quant mIU/mL Urine Color YELLOW Urine Appearance CLEAR Urine pH 5.5 (5.0-8.0) Ur Specific [place] >= 1.030 (1.001-1.035) Urine Protein NEGATIVE (NEGATIVE) mg/dL Urine Glucose (UA) NEGATIVE (NEGATIVE) mg/dL Urine Ketones TRACE H (NEGATIVE) mg/dL Urine Occult Blood NEGATIVE (NEGATIVE) Urine Nitrite NEGATIVE (NEGATIVE) Urine Bilirubin NEGATIVE (NEGATIVE) Urine Urobilinogen 0.2 (<2.0) EU/dL Ur Leukocyte Esterase NEGATIVE (NEGATIVE) Urine HCG, Qual POSITIVE (NEGATIVE) Departure - Departure Time of Disposition: 16:55 Disposition: Home, Self-Care 01 Condition: Good Clinical Impression: Chest pain Qualifiers: Chest pain type: unspecified Qualified Code(s): R07.9 - Chest pain, unspecified - Discharge Information *PRESCRIPTION DRUG MONITORING PROGRAM REVIEWED*: Not Applicable *COPY OF PRESCRIPTION DRUG MONITORING REPORT IN PATIENT NAHOMI: Not Applicable Instructions: Chest Wall Pain Referrals: Carrie Loera MD [Primary Care Provider] - Forms: ED Department Discharge Additional Instructions: The following information is given to patients seen in the emergency department who are being discharged to home. This information is to outline your options for follow-up care. We provide all patients seen in our emergency department with a follow-up referral. The need for follow-up, as well as the timing and circumstances, are variable depending upon the specifics of your emergency department visit. If you don't have a primary care physician on staff, we will provide you with a referral. We always advise you to contact your personal physician following an emergency department visit to inform them of the circumstance of the visit and for follow-up with them and/or the need for any referrals to a consulting specialist. The emergency department will also refer you to a specialist when appropriate. This referral assures that you have the opportunity for follow-up care with a specialist. All of these measure are taken in an effort to provide you with optimal care, which includes your follow-up. Under all circumstances we always encourage you to contact your private physician who remains a resource for coordinating your care. When calling for follow-up care, please make the office aware that this follow-up is from your recent emergency room visit. If for any reason you are refused follow-up, please contact the [facility] Emergency Department at and asked to speak to the emergency department charge nurse. [facility] [address] [place] [address] [id number] [address] Plan: 1. You were evaluated today on an emergent basis. Your complaints of pain from your under your left breast to your left mid back was evaluated with blood work, EKG, and and ultrasound. They were all normal. Your ultrasound reading is 2. You can alternate Tylenol and ibuprofen as needed for pain and fever management. Complex left ovarian cyst measuring 1.3 x 0.9 x 1.2 centimeters likely reflect corpus luteum cysts. Normal blood flow to both ovaries. Normal right ovary. Your quantitative hCG was 164. You need to follow-up with your [employer] and have a follow-up ultrasound and quantitative hCG. If your pain does return please return to the emergency room. 3. We encourage you to follow up with your primary care provider and/or recommended specialist in the next few days for re-evaluation and further care/management. 4. If your symptoms should worsen, new symptoms develop or any of the signs and symptoms we discussed should arise please return to the emergency room or call 911 (if needed). Sepsis Event Note (ED) - Evaluation Sepsis Screening Result: No Definite Risk - Focused Exam Vital Signs: Vital Signs Temp Pulse Resp BP Pulse Ox 11/29/20 16:53 91 16 126/75 100 11/29/20 12:35 97.6 F 132 H 17 144/82 H 97
--- NOTE | 2020-11-29 16:31 | US ---
CLINICAL HISTORY: Left-sided pain. TECHNIQUE: Real time, mcduffie scale images were acquired of the pelvis using a transabdominal and transvaginal approach. Color Doppler analysis was performed of the ovaries. FINDINGS: Uterus measures 9.6 x 6.7 x 4.7 cm. Endometrium measures 1.6 centimeters. Small amount of fluid within the endometrial canal. Uterus is anteverted. Normal right ovary. Right ovary measures 2.4 x 1.8 by 2.4 centimeters normal blood flow to the right ovary. Left ovary measures 2.4 x 3 centimeters thigh 3.2 centimeters complex cyst left ovary likely reflects corpus luteum cyst. Normal blood flow to the left ovary. No free fluid. No adnexal mass. IMPRESSION: 1. Complex left ovarian cyst measuring 1.3 x 0.9 x 1.2 centimeters likely reflect corpus luteum cysts. Normal blood flow to both ovaries. Normal right ovary. Dictated by Kathleen Cloud MD @ 11/29/2020 4:30:[address] Kathleen Cloud @ Nov 29 2020 4:30PM
--- NOTE | 2020-11-29 20:29 | PCM.EKG ---
#1 Interpretation EKG Date: 11/29/20 Time: 12:30 Rhythm: NSR Rate (Beats/Min): 122 [place]: Normal P-Wave: Present QRS: Normal ST-T: Normal QT: Normal Comparison: NA - No Prior EKG EKG Interpretation Comments: Sinus Tachycardia
== END 2020-11-29 17:09 | disposition home or self-care (01) ==
LOC: MW.ED 12:17
DX: O99.891 Other specified diseases and conditions complicating pregnancy (principal); R07.9 Chest pain, unspecified; Z3A.00 Weeks of gestation of pregnancy not specified
CPT/HCPCS: 36415; 76817; 76817-26; 80053; 81003; 81025; 84702; 85025; 93005; 99283; 99285-25

== ENCOUNTER 2021-02-02 20:19 | Emergency (ER) | payer BC ==
--- NOTE | 2021-02-02 21:36 | EDM.PDOC ---
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 She bled before when her progesterone dropped and her doctor put her on progesterone. She had finished her course of progesterone but now started spotting in her doctor today told her to start progesterone again tomorrow. She is not weak and dizzy. She not hemorrhaging. She is not sweaty. She is not having vomiting or diarrhea or any cause for dehydration. The patient has prior lab here showing she is a positive blood type. She has had 2 ultrasounds since the one that was inconclusive here in 29 November. Her doctor says she is 13 weeks now. Review of systems: As per history of present illness and below otherwise all systems reviewed and negative. Past medical history: As per history of present illness and as reviewed below otherwise noncontributory. Surgical history: As per history of present illness and as reviewed below otherwise noncontributory. Social history: No reported history of drug or alcohol abuse. Family history: As per history of present illness and as reviewed below otherwise noncontributory. Physical exam: Constitutional - well developed, well-nourished and in no acute distress HEENT - normocephalic, no evidence of trauma - external nose and mouth normal - no mass in neck and no JVD - mucosae moist EYES - full EOM, PERRL, no icterus - no evidence of inflammation, injection, or drainage Respiratory - no respiratory distress, equal bilateral expansion, lungs clear to auscultation and no abnormal lung sounds Cardiovascular - Regular Rhythm with S1 and S2 appreciated and no murmur, gallop or rub. GI - abdomen soft without distension or organomegaly - no guard or rebound Musculoskeletal no gross deformity of long bones or joints - no tenderness, swelling or edema Neurologic - Alert and oriented times four - CN II-XII grossly intact - motor sensory and coordination symmetrically normal Psychiatric - appropriate mood and affect with normal thought content Hematologic - No petechiae or purpura - mucosa appropriate color and sclera not pale - normal nail bed color and refill Integument - no rash or evidence of trauma - normal turgor Diagnostics: [] Therapeutics: [] Impression: [] Plan: [] Definitive disposition and diagnosis as appropriate pending reevaluation and review of above. Abdomen Pain Score (Numeric/FACES): 0 - Related Data Allergies Allergy/AdvReac Type Severity Reaction Status Date / Time No Known Allergies Allergy Verified 02/02/21 21:08 Home Meds: Home Meds . 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 ED EXAM, GENERAL - Physical Exam Exam: See Below Free Text/Narrative:: My physical exam is in the HPI Course - Vital Signs Last Recorded V/S: Last Vital Signs Temp 37.7 C 02/02/21 20:56 Pulse 90 02/02/21 20:56 Resp 16 02/02/21 20:56 BP 132/72 02/02/21 20:56 Pulse Ox 100 02/02/21 20:56 - Orders/Labs/Meds Orders: Active Orders 24 hr Category Date Time Status HCG QUANTITATIVE [CHEM] Stat Lab 02/02/21 21:29 Received Labs: Laboratory Tests 02/02/21 02/02/21 Range/Units 21:29 21:29 WBC 9.48 (4.0-11.0) K/uL RBC 4.89 (4.30-5.90) M/uL Hgb 12.9 (12.0-16.0) g/dL Hct 38.4 (36.0-46.0) % MCV 78.5 L (80.0-98.0) fL MCH 26.4 L (27.0-32.0) pg MCHC 33.6 (31.0-37.0) g/dL RDW Std Deviation 39.9 (28.0-62.0) fl RDW Coeff of Mahamed 14 (11.0-15.0) % Plt Count 273 (150-400) K/uL MPV 9.50 (7.40-12.00) fL Neut % (Auto) 59.1 (48.0-80.0) % Lymph % (Auto) 31.5 (16.0-40.0) % [place] % (Auto) 7.2 (0.0-15.0) % Eos % (Auto) 2.2 (0.0-7.0) % Baso % (Auto) 0.0 (0.0-1.5) % Neut # (Auto) 5.6 (1.4-5.7) K/uL Lymph # (Auto) 3.0 H (0.6-2.4) K/uL [place] # (Auto) 0.7 (0.0-0.8) K/uL Eos # (Auto) 0.2 (0.0-0.7) K/uL Baso # (Auto) 0.0 (0.0-0.1) K/uL Nucleated RBC % 0.0 /100WBC Nucleated RBCs # 0 K/uL Progesterone 7.53 NG/ML Departure - Departure Time of Disposition: 22:23 Disposition: Home, Self-Care 01 Condition: Good Clinical Impression: Threatened - Discharge Information Instructions: Threatened Miscarriage Referrals: Carrie Loera MD [Primary Care Provider] - Forms: ED Department Discharge Additional Instructions: Have ultrasound as an outpatient Return if heavy pain, fever, heavy bleeding [facility] [address] [place] [address] [facility] [address] [place] [address] The following information is given to patients seen in the emergency department who are being discharged to home. This information is to outline your options for follow-up care. We provide all patients seen in our emergency department with a follow-up referral. The need for follow-up, as well as the timing and circumstances, are variable depending upon the specifics of your emergency department visit. If you don't have a primary care physician on staff, we will provide you with a referral. We always advise you to contact your personal physician following an emergency department visit to inform them of the circumstance of the visit and for follow-up with them and/or the need for any referrals to a consulting specialist. The emergency department will also refer you to a specialist when appropriate. This referral assures that you have the opportunity for follow-up care with a specialist. All of these measure are taken in an effort to provide you with optimal care, which includes your follow-up. Under all circumstances we always encourage you to contact your private physician who remains a resource for coordinating your care. When calling for follow-up care, please make the office aware that this follow-up is from your recent emergency room visit. If for any reason you are refused follow-up, please contact the [facility] Emergency Department at and asked to speak to the emergency department charge nurse. Sepsis Event Note (ED) - Focused Exam Vital Signs: Vital Signs Temp Pulse Resp BP Pulse Ox 02/02/21 20:56 37.7 C 90 16 132/72 100
== END 2021-02-02 22:35 | disposition home or self-care (01) ==
LOC: MW.ED 20:19
DX: O20.0 Threatened abortion (principal); Z3A.13 13 weeks gestation of pregnancy
CPT/HCPCS: 36415; 84144; 84702; 85025; 99284

== ENCOUNTER 2021-02-26 05:18 | Inpatient (IN) | payer BC ==
[2021-02-26] MEDS ORDERED: Sodium Chloride 0.9% 10 ML Syringe FLUSH PRN (16:13)
[2021-02-26] MEDS ORDERED: Butorphanol 1 MG/ML SDV IVPUSH PRN (16:13)
[2021-02-26] MEDS ORDERED: Sodium Chloride 0.9% 10 ML SDV IV PRN (16:13)
[2021-02-26] MEDS ORDERED: Sodium Chloride 0.9% 2.5 ML Syringe FLUSH PRN (16:13)
[2021-02-26] MEDS ORDERED: Water For Irrigation,Sterile 1,000 ML Container IRR PRN (16:22)
[2021-02-26] MEDS ORDERED: Ondansetron 4 MG/2 ML SDV IVPUSH PRN (16:22)
[2021-02-26] MEDS ORDERED: Tranexamic Acid 1,000 MG in Sodium Chloride 0.9% 100 ML IV PRN (16:22)
[2021-02-26] MEDS ORDERED: Carboprost Tromethamine 250 MCG/1 ML Amp IM PRN (16:22)
[2021-02-26] MEDS ORDERED: Methylergonovine 0.2 MG/1 ML Amp IM PRN (16:22)
[2021-02-26] MEDS ORDERED: Misoprostol 200 MCG Tab PO PRN (16:22)
[2021-02-26] MEDS ORDERED: Lidocaine 1% 50 ML MDV INJECT PRN (16:22)
[2021-02-26] MEDS ORDERED: Lactated Ringers 1,000 ML IV SCH (16:30)
[2021-02-26] MEDS ORDERED: Oxytocin/0.9 % Sodium Chloride 30 UNIT/500 ML BAG IV SCH (16:30)
[2021-02-26 18:46] LABS: HEMOGLOBIN A1C 5.1 %
[2021-02-26] MEDS: Misoprostol 200 MCG Tab VAG SCH (19:55)
[2021-02-26] MEDS: Lactated Ringers 1,000 ML IV SCH ×2 (20:00→22:42)
[2021-02-27] MEDS: Misoprostol 200 MCG Tab VAG SCH (02:02)
[2021-02-27] MEDS ORDERED: Docusate Sodium 100 MG Cap PO PRN (05:17)
[2021-02-27] MEDS ORDERED: Acetaminophen 500 MG Tab PO PRN ×2 (05:17)
[2021-02-27] MEDS ORDERED: Ibuprofen 800 MG Tab PO PRN (05:17)
[2021-02-27] MEDS ORDERED: Ibuprofen 400 MG Tab PO PRN (05:17)
[2021-02-27] MEDS ORDERED: Witch Hazel Medicated Pads 40/Jar TOP PRN (05:17)
[2021-02-27] MEDS ORDERED: oxyCODONE 5 MG Tab PO PRN (05:17)
[2021-02-27] MEDS ORDERED: Benzocaine/Menthol 20%-0.5% Spray 78 GM Cannister TOP PRN (05:17)
[2021-02-27] MEDS ORDERED: Bisacodyl 10 MG Supp RECTAL PRN (05:17)
--- NOTE | 2021-02-27 08:52 | PCM.PNPP ---
- General Info Date of Service: 02/27/21 Functional Status: Reports: Pain Controlled, Tolerating Diet, Ambulating, Urinating - Review of Systems General: Reports: Fatigue. Denies: Fever, Weakness Pulmonary: Denies: Shortness of Breath Cardiovascular: Denies: Chest Pain, Palpitations, Lightheadedness Gastrointestinal: Reports: Abdominal Pain (mild cramping controlled with ibuprofen) Genitourinary: Reports: No Symptoms Musculoskeletal: Reports: No Symptoms Skin: Reports: No Symptoms Neurological: Reports: No Symptoms Psychiatric: Reports: Other (appropriately sad) - General Info Date of Service: 02/27/21 - Patient Data Weight - Most Recent: 75.296 kg I&O - Last 24 Hours: Intake & Output 02/26/21 02/27/21 02/27/21 22:59 06:59 14:59 Intake Total 1000 1500 Output Total 300 Balance 1000 1200 Lab Results - Last 24 Hours: Laboratory Results - last 24 hr 02/26/21 02/26/21 02/26/21 Range/Units 16:00 18:13 18:13 WBC 12.44 H (4.0-11.0) K/uL RBC 5.12 (4.30-5.90) M/uL Hgb 13.9 (12.0-16.0) g/dL Hct 39.9 (36.0-46.0) % MCV 77.9 L (80.0-98.0) fL MCH 27.1 (27.0-32.0) pg MCHC 34.8 (31.0-37.0) g/dL RDW Std Deviation 38.5 (28.0-62.0) fl RDW Coeff of Mahamed 14 (11.0-15.0) % Plt Count 336 (150-400) K/uL MPV 9.70 (7.40-12.00) fL Nucleated RBC % 0.0 /100WBC Nucleated RBCs # 0 K/uL Hemoglobin A1c 5.1 (4.5 - 6.2) % TSH, Ultra Sensitive (0.36-3.74) uIU/mL SARS-CoV-2 RNA (EMILY) NEGATIVE (NEGATIVE) Blood Type Antibody Screen KB Screen KB Cells Counted KB Red Cells Counted KB % Cells Doses of RhIg Required 02/26/21 02/26/21 Range/Units 18:13 18:13 WBC (4.0-11.0) K/uL RBC (4.30-5.90) M/uL Hgb (12.0-16.0) g/dL Hct (36.0-46.0) % MCV (80.0-98.0) fL MCH (27.0-32.0) pg MCHC (31.0-37.0) g/dL RDW Std Deviation (28.0-62.0) fl RDW Coeff of Mahamed (11.0-15.0) % Plt Count (150-400) K/uL MPV (7.40-12.00) fL Nucleated RBC % /100WBC Nucleated RBCs # K/uL Hemoglobin A1c (4.5 - 6.2) % TSH, Ultra Sensitive 0.67 (0.36-3.74) uIU/mL SARS-CoV-2 RNA (EMILY) (NEGATIVE) Blood Type A POSITIVE Antibody Screen NEGATIVE KB Screen SEE NOTE KB Cells Counted 0 KB Red Cells Counted 2034 KB % Cells 0.00 Doses of RhIg Required 0 Med Orders - Current: Current Medications Acetaminophen (Acetaminophen 500 Mg Tab) 500 mg PO Q4H PRN PRN Reason: Pain (mild 1-3) Last Admin: 02/27/21 05:46 Dose: 500 mg Documented by: Acetaminophen (Acetaminophen 500 Mg Tab) 1,000 mg PO Q4H PRN PRN Reason: Pain (mild 1-3) Benzocaine/Menthol (Benzocaine/Menthol 20%-0.5% Stone 78 Gm Cannister) 78 gm TOP ASDIRECTED PRN PRN Reason: Perineal Comfort Measure Bisacodyl (Bisacodyl 10 Mg Supp) 10 mg RECTAL ONETIME PRN PRN Reason: Constipation Butorphanol Tartrate (Butorphanol 1 Mg/Ml Sdv) 1 mg IVPUSH Q1H PRN PRN Reason: Pain (mild 1-3) Carboprost Tromethamine (Carboprost Tromethamine 250 Mcg/1 Ml Amp) 250 mcg IM ASDIRECTED PRN PRN Reason: Post Hemorrhage Docusate Sodium (Docusate Sodium 100 Mg Cap) 100 mg PO Q12H PRN PRN Reason: Constipation Lactated Ringer's (Ringers, Lactated) 1,000 mls @ 150 mls/hr IV ASDIRECTED YURIDIA Last Admin: 02/26/21 22:42 Dose: 150 mls/hr Documented by: Lactated Ringer's (Ringers, Lactated) 1,000 mls @ 150 mls/hr IV ASDIRECTED [facility] Oxytocin/Sodium Chloride (Oxytocin 30 Unit/500 Ml-Ns) 30 unit in 500 mls @ 999 mls/hr IV TITRATE [facility] Last Admin: 02/27/21 05:00 Dose: 250 mls/hr Documented by: Tranexamic Acid 1,000 mg/ (Sodium Chloride) 110 mls @ 660 mls/hr IV ONETIME PRN PRN Reason: Bleeding Ibuprofen (Ibuprofen 400 Mg Tab) 400 mg PO Q4H PRN PRN Reason: Pain (mild 1-3) Ibuprofen (Ibuprofen 800 Mg Tab) 800 mg PO Q6H PRN PRN Reason: Cramping Last Admin: 02/27/21 05:45 Dose: 800 mg Documented by: Lidocaine HCl (Lidocaine 1% 50 Ml Mdv) 50 ml INJECT ONETIME PRN PRN Reason: Laceration repair Methylergonovine Maleate (Methylergonovine 0.2 Mg/1 Ml Amp) 0.2 mg IM ASDIRECTED PRN PRN Reason: Post Hemorrhage Misoprostol (Misoprostol 200 Mcg Tab) 200 mcg PO ONETIME PRN PRN Reason: Post Hemorrhage Ondansetron HCl (Ondansetron 4 Mg/2 Ml Sdv) 4 mg IVPUSH Q6H PRN PRN Reason: Nausea/Vomiting Oxycodone HCl (Oxycodone 5 Mg Tab) 5 mg PO Q2H PRN PRN Reason: Pain (severe 7-10) Sodium Chloride (Sodium Chloride 0.9% 10 Ml Syringe) 10 ml FLUSH ASDIRECTED PRN PRN Reason: Keep Vein Open Sodium Chloride (Sodium Chloride 0.9% 2.5 Ml Syringe) 2.5 ml FLUSH ASDIRECTED PRN PRN Reason: Keep Vein Open Sodium Chloride (Sodium Chloride 0.9% 10 Ml Sdv) 10 ml IV ASDIRECTED PRN PRN Reason: IV Use Sterile Water (Water For Irrigation,Sterile 1,000 Ml Container) 1,000 ml IRR ASDIRECTED PRN PRN Reason: delivery Witch Carole (Witch Carole Medicated Pads 40/Jar) 1 pad TOP ASDIRECTED PRN PRN Reason: comfort care Discontinued Medications Misoprostol (Misoprostol 200 Mcg Tab) 600 mcg VAG Q6H YURIDIA Last Admin: 02/27/21 02:02 Dose: 600 mcg Documented by: - Infant Interaction Support Person: - Exam General: Alert, Oriented Lungs: Normal Respiratory Effort Cardiovascular: Regular Rate, Regular Rhythm GI/Abdominal Exam: Normal Bowel Sounds, Soft Extremities: Pedal Edema Skin: Warm, Dry, Intact Neurological: No New Focal Deficit Psy/Mental Status: Alert, Normal Affect - Problem List & Annotations (1) Complete miscarriage SNOMED Code(s): 899915359 Code(s): O03.9 - COMPLETE OR UNSP SPONTANEOUS WITHOUT COMPLICATION Status: Acute Current Visit: Yes - Problem List Review Problem List Initiated/Reviewed/Updated: Yes - My Orders Last 24 Hours: My Active Orders 02/26/21 16:13 Patient Status [ADT] Routine Peripheral IV Care [RC] PRN Up ad Yadira [RC] ASDIRECTED Vital Signs [RC] PER UNIT ROUTINE Consult to Spiritual Care [CONS] Routine Butorphanol [Stadol] 1 mg IVPUSH Q1H PRN Sodium Chloride 0.9% [Normal Saline] 10 ml IV ASDIRECTED PRN Sodium Chloride 0.9% [Saline Flush] 10 ml FLUSH ASDIRECTED PRN Sodium Chloride 0.9% [Saline Flush] 2.5 ml FLUSH ASDIRECTED PRN Peripheral IV Insertion Adult [OM.PC] Routine 02/26/21 16:15 Lactated Ringers [Ringers, Lactated] 1,000 ml IV ASDIRECTED 02/26/21 16:22 May Shower [RC] ASDIRECTED Notify Provider [RC] PRN Carboprost Tromethamine [Hemabate DS] 250 mcg IM ASDIRECTED PRN Lidocaine 1% [Xylocaine 1%] 50 ml INJECT ONETIME PRN Methylergonovine [Methergine] 0.2 mg IM ASDIRECTED PRN Ondansetron [Zofran] 4 mg IVPUSH Q6H PRN Tranexamic Acid [Cyklokapron] 1,000 mg Sodium Chloride 0.9% [Normal Saline] 100 ml IV ONETIME Water For Irrigation,Sterile [Sterile Water for Irrigation] 1,000 ml IRR ASDIRECTED PRN miSOPROStoL [Cytotec] 200 mcg PO ONETIME PRN Resuscitation Status Routine 02/26/21 16:30 Lactated Ringers [Ringers, Lactated] 1,000 ml IV ASDIRECTED Oxytocin/0.9 % Sodium Chloride [Oxytocin 30 Unit/500 ML-NS] 30 unit in 500 ml IV TITRATE 02/26/21 17:45 Vital Signs [RC] PER UNIT ROUTINE 02/26/21 18:13 HOMOCYST(E)INE, PLASMA [REF] Routine PARVOVIRUS B19, HUMAN, IGG/IGM [REF] Routine RPR (SYPHILIS SERO) W/ RFLX [REF] Routine 02/27/21 05:17 Acetaminophen [Tylenol Extra Strength] 1,000 mg PO Q4H PRN Acetaminophen [Tylenol Extra Strength] 500 mg PO Q4H PRN Benzocaine/Menthol [Dermoplast Pain Relief 20%-0.5% Stone] 78 gm TOP ASDIRECTED PRN Docusate Sodium [Colace] 100 mg PO Q12H PRN Ibuprofen [Motrin] 400 mg PO Q4H PRN Ibuprofen [Motrin] 800 mg PO Q6H PRN bisacodyL [Dulcolax] 10 mg RECTAL ONETIME PRN oxyCODONE 5 mg PO Q2H PRN witch Carole [Tucks] 1 pad TOP ASDIRECTED PRN 02/27/21 05:18 Patient Status [ADT] Routine May Shower [RC] ASDIRECTED Assess Lochia [WOMSER] Per Unit Routine Assess Uterine Involution [WOMSER] Per Unit Routine Peripheral IV Discontinue [OM.PC] Routine 02/27/21 Breakfast Regular Diet [DIET] - Assessment Assessment:: 16 week demise - Plan Plan:: With cytotec, was able to deliver fetus around 3:40 am. Placenta also delivered. There was a triple nuchal cord present. This is most likely reason for demise. Otherwise, no gross anomalies of fetus observed. Will send fetus to pathology for weight/measurements and then family would like fetus to go with home for cremation. Arrangements have been made. Family is declining autopsy or chromosomal analysis. Initial labs are normal (TSH, HgbA1C). At this time lochia is minimal. Patient is appropriately grieving and has very good social/family support. Allow discharge to home this morning with follow up in 2 weeks at [facility]. Pelvic rest for 2 weeks advised. Infection and bleeding warnings reviewed. Patient agrees to plan of care.
== END 2021-02-27 10:25 | disposition home or self-care (01) | DRG 560 ==
LOC: MW.OB 05:18 → OBSVTOIN 02-27 05:18
PROVIDERS: ADMIT Obstetrics & Gynecology; ATTEND Obstetrics & Gynecology
PROC: 10E0XZZ Delivery of Products of Conception, External Approach (ICD-10-PCS; principal; 2021-02-27)
PROC: 3E0P7VZ Introduction of Hormone into Female Reproductive, Via Natural or Artificial Opening (ICD-10-PCS; 2021-02-27)
DX: O03.9 Complete or unspecified spontaneous abortion without complication (principal); Z20.822 Contact with and (suspected) exposure to COVID-19; Z37.1 Single stillbirth
CPT/HCPCS: 36415; 59409; 59414; 83036; 83090; 84443; 85027; 85460; 86592; 86747; 86850; 86900; 86901; A9270-GY; J2590; J7120; U0002

== ENCOUNTER 2021-11-14 11:38 | Emergency (ER) | payer BC | END 2021-11-14 11:59 | disposition home or self-care (01) | LOC: MW.ED 11:38 | DX: J02.9 Acute pharyngitis, unspecified (principal); Z79.899 Other long term (current) drug therapy | CPT/HCPCS: 99282; 99283 ==

== ENCOUNTER 2022-01-29 20:24 | Emergency (ER) | payer BC ==
[2022-01-29 22:27] LABS: BLOOD UREA NITROGEN,BUN 8 mg/dL (7.0-18.0); CARBON DIOXIDE,CO2 26.3 mmol/L (21.0-32.0); CHLORIDE,CL 105 mmol/L (98-107); GLUCOSE RANDOM 93 mg/dL (74-106); POTASSIUM,K 4.2 mmol/L (3.5-5.1); SODIUM,NA 140 mmol/L (136-145)
[2022-01-29 22:41] LABS: ESTIMATED GFR 119 mL/min (>60)
== END 2022-01-30 01:55 | disposition home or self-care (01) ==
LOC: MW.ED 20:24
DX: O20.0 Threatened abortion (principal); U07.1 COVID-19; Z3A.01 Less than 8 weeks gestation of pregnancy
CPT/HCPCS: 36415; 76817; 76817-26; 80053; 84144; 84702; 85025; 85610; 85730; 86850; 86900; 86901; 99284; U0002

== ENCOUNTER 2022-04-28 08:29 | Emergency (ER) | payer BC ==
[2022-04-28] MEDS ORDERED: Methotrexate PF 50 MG/2 ML SDV IM STA ×2 (13:01→13:52)
== END 2022-04-28 14:58 | disposition home or self-care (01) ==
LOC: MW.ED 08:29
DX: O00.90 Unspecified ectopic pregnancy without intrauterine pregnancy (principal)
CPT/HCPCS: 36415; 76817; 84702; 96372; 99284; J9260

== ENCOUNTER 2023-07-05 06:31 | Emergency (ER) | payer BC | END 2023-07-05 08:11 | disposition home or self-care (01) | LOC: MW.ED 06:31 | DX: M79.10 Myalgia, unspecified site (principal) | CPT/HCPCS: 93005; 93010; 99282; 99283 ==

== ENCOUNTER 2025-04-24 09:39 | Emergency (ER) | payer BC | END 2025-04-24 11:06 | disposition home or self-care (01) | LOC: MW.ED 09:39 | DX: G47.00 Insomnia, unspecified (principal); F41.9 Anxiety disorder, unspecified | CPT/HCPCS: 99283; 99284 ==

== ENCOUNTER 2025-04-26 01:17 | Emergency (ER) | payer BC | END 2025-04-26 04:02 | disposition home or self-care (01) | LOC: MW.ED 01:17 | DX: G47.00 Insomnia, unspecified (principal) | CPT/HCPCS: 99283 ==

== ENCOUNTER 2025-04-27 03:15 | Emergency (ER) | payer BC ==
[2025-04-27 03:44] LABS: BASOPHILS ABSOLUTE AUTO 0.01 K/uL (0.00-0.20); BASOPHILS PERCENT AUTO 0.1 % (0.0-1.0); EOSINOPHILS ABSOLUTE AUTO 0.08 K/uL (0.00-0.45); EOSINOPHILS PERCENT AUTO 0.9 % (0.0-6.0); IMMATURE GRAN ABSOLUTE AUTO 0.02 K/uL (0.00-0.05); IMMATURE GRAN PERCENT AUTO 0.2 % (0.0-0.4); LYMPHOCYTES ABSOLUTE AUTO 2.43 K/uL (1.00-4.80); LYMPHOCYTES PERCENT AUTO 28.8 % (24.0-44.0); MEAN PLATELET VOLUME 8.9 fL (9.4-12.3); MONOCYTES ABSOLUTE AUTO 0.62 K/uL (0.00-0.80); MONOCYTES PERCENT AUTO 7.3 % (0.0-8.0); NEUTROPHILS ABSOLUTE AUTO 5.28 K/uL (1.80-7.70); NEUTROPHILS PERCENT AUTO 62.7 % (41.0-71.0); NRBC ABSOLUTE 0.00 K/uL (0.00-0.02); NRBC PERCENT 0.0 /100WBC (0.0-0.2); PLATELET COUNT,PLT 296 K/uL (150-400); RED BLOOD CELL COUNT 5.42 M/uL (4.10-5.30); WHITE BLOOD CELL COUNT,WBC 8.44 K/uL (3.9-11.3)
[2025-04-27 03:50] LABS: APPEARANCE,URINE SLT CLOUDY; GLUCOSE,URINE NEGATIVE (NEGATIVE); OCCULT BLOOD,URINE NEGATIVE (NEGATIVE)
[2025-04-27 03:58] LABS: EPITHELIAL CELLS,URINE MANY (NONE-FEW)
[2025-04-27 04:15] LABS: A/G RATIO 1.3 (0.9-1.6); ALANINE AMINOTRANSFERASE,ALT 17 IU/L (14-63); ASPARTATE AMNIOTRANSFERASE,AST 12 IU/L (15-37); BILIRUBIN TOTAL 1.3 mg/dL (0.2-1.0); BLOOD UREA NITROGEN,BUN 10 mg/dL (7.0-18.0); CARBON DIOXIDE,CO2 30.3 mmol/L (21.0-32.0); CHLORIDE,CL 104 mmol/L (98-107); CREATININE 0.8 mg/dL (0.6-1.0); GLUCOSE RANDOM 99 mg/dL (74-106); POTASSIUM,K 3.9 mmol/L (3.5-5.1); PROTEIN TOTAL,TP 7.2 g/dL (6.4-8.2); SODIUM,NA 142 mmol/L (136-145); TSH ULTRASENSITIVE 0.84 uIU/mL (0.36-3.74)
[2025-04-27 04:32] LABS: ESTIMATED GFR 100 mL/min (>60)
== END 2025-04-27 05:06 | disposition home or self-care (01) ==
LOC: MW.ED 03:15
DX: G47.00 Insomnia, unspecified (principal); Z79.899 Other long term (current) drug therapy
CPT/HCPCS: 36415; 70450; 70450-26; 80053; 81001; 81025; 84443; 85025; 99283; 99284